=== PATIENT | female | born 2000 | race Hispanic/Latino ===

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

== ENCOUNTER 2022-07-17 12:52 | Inpatient (IN) | payer OTHER ==
[~2022-07-17] VITALS: Ht 162.6 cm; Wt 48.2 kg
[2022-07-17] MEDS ORDERED: ONDANSETRON 4MG INJ IVP ONE (13:30)
[2022-07-17] MEDS ORDERED: PANTOPRAZOLE 40 MG/VIAL IVP ONE (13:30)
[2022-07-17] MEDS ORDERED: LIDOCAINE HCL 2% VISCOUS 15 ML UDCUP PO ONE (13:30)
[2022-07-17] MEDS ORDERED: LACTATED RINGERS 1000ML 1,000 ML IV ONE ×2 (13:30→13:35)
[2022-07-17] MEDS ORDERED: PANTOPRAZOLE 40 MG/VIAL ONE (13:35)
[2022-07-17] MEDS ORDERED: ONDANSETRON 4MG INJ ONE (13:35)
[2022-07-17] MEDS ORDERED: LIDOCAINE HCL 2% VISCOUS 15 ML UDCUP ONE (13:36)
[2022-07-17] MEDS ORDERED: MAGNESIUM HYDROXIDE 30 ML/UDCUP ONE (13:36)
[2022-07-17] MEDS ORDERED: DICYCLOMINE HCL 10 MG/5 ML ML PO ONE (13:36)
[2022-07-17 13:45] LABS: BASOPHILS % (AUTO) 0.3 % (0.0-5.0); EOSINOPHILS % (AUTO) 0.1 % (0.0-8.0); HEMATOCRIT 42.5 % (36-48); LYMPHOCYTES % (AUTO) 9.9 % (21.0-51.0); MEAN CORPUSCULAR HEMOGLOBIN 31.5 pg (27.0-33.0); MEAN CORPUSCULAR HGB CONC 34.4 g/dL (32.0-36.0); MEAN CORPUSCULAR VOLUME 91.8 fL (80-100); MONOCYTES % (AUTO) 7.2 % (3.0-13.0); NEUTROPHILS % (AUTO) 82.2 % (40.0-77.0); PLATELET COUNT (AUTO) 180 K/uL (130-400); RED BLOOD CELL COUNT(AUTO) 4.63 MIL/uL (4.00-5.50); RED CELL DISTRIBUTION WIDTH 11.2 % (11.0-15.5)
[2022-07-17 13:46] LABS: APPEARANCE,URINE CLEAR (CLEAR); BILIRUBIN,URINE NEGATIVE (NEGATIVE); COLOR,URINE YELLOW (YELLOW); GLUCOSE, URINE (UA) NEGATIVE (NEGATIVE); KETONES,URINE NEGATIVE (NEGATIVE); LEUKOCYTE ESTERASE ,URINE NEGATIVE (NEGATIVE); NITRATE,URINE NEGATIVE (NEGATIVE); OCCULT BLOOD,URINE NEGATIVE (NEGATIVE); PROTEIN,URINE NEGATIVE (NEGATIVE); UROBILINOGEN,URINE 0.2 mg/dL (0.2-1.0)
[2022-07-17 13:49] LABS: HCG,QUALITATIVE URINE NEGATIVE (NEGATIVE)
[2022-07-17 13:52] LABS: CREATININE 0.5 mg/dL (0.5-1.5); POTASSIUM 3.6 mmol/L (3.5-5.1)
[2022-07-17 13:57] LABS: ALBUMIN 4.1 g/dL (3.5-5.0); TOTAL PROTEIN, SERUM 7.8 g/dL (6.0-8.3)
[2022-07-17] MEDS ORDERED: ESOM40CA PO (14:10)
[2022-07-17] MEDS ORDERED: LOPE2CAP PO (14:15)
[2022-07-17] MEDS ORDERED: ONDA4TAB10 PO (14:15)
[2022-07-17] MEDS ORDERED: MORPHINE 2 MG SYG ONE (14:52)
[2022-07-17] MEDS ORDERED: MORPHINE 4 MG SYG IVP ONE ×2 (15:00→16:00)
[2022-07-17] MEDS ORDERED: PANTOPRAZOLE 40 MG/VIAL IV ONE (16:00)
[2022-07-17] MEDS ORDERED: IOHEXOL 350 MG/ML 100ML INFUS..BTL IV ONE (16:01)
[2022-07-17] MEDS ORDERED: ZOSYN 3.375GM +NS 50ML IV SCH (17:00)
[2022-07-17] MEDS ORDERED: HYDROMORPHONE 1 MG INJ ONE (17:58)
[2022-07-17] MEDS ORDERED: HYDROMORPHONE 1 MG INJ IVP ONE (18:00)
[2022-07-17] MEDS ORDERED: MORPHINE 4 MG SYG IV PRN (19:00)
[2022-07-17] MEDS ORDERED: ACETAMINOPHEN 325 MG TAB PO PRN ×2 (19:00)
[2022-07-17] MEDS ORDERED: MORPHINE 2 MG SYG IV PRN (19:00)
[2022-07-17] MEDS ORDERED: ONDANSETRON 4MG INJ IV PRN (19:00)
[2022-07-17] MEDS: LACTATED RINGERS 1000ML 1,000 ML IV SCH (19:03)
[2022-07-17] MEDS: FAMOTIDINE 20MG VIAL IV SCH (20:27)
[2022-07-17] MEDS: METOCLOPRAMIDE 10 MG/2 ML VIAL IVP SCH (20:27)
[2022-07-18] VITALS (7 sets, daily range): BP systolic 106–140; BP diastolic 54–77
[2022-07-18 05:34] LABS: BASOPHILS % (AUTO) 0.2 % (0.0-5.0); HEMATOCRIT 36.6 % (36-48); LYMPHOCYTES % (AUTO) 11.9 % (21.0-51.0); MEAN CORPUSCULAR HEMOGLOBIN 31.8 pg (27.0-33.0); MEAN CORPUSCULAR HGB CONC 34.7 g/dL (32.0-36.0); MEAN CORPUSCULAR VOLUME 91.7 fL (80-100); MONOCYTES % (AUTO) 8.6 % (3.0-13.0); PLATELET COUNT (AUTO) 196 K/uL (130-400); RED BLOOD CELL COUNT(AUTO) 3.99 MIL/uL (4.00-5.50); RED CELL DISTRIBUTION WIDTH 11.1 % (11.0-15.5); WHITE BLOOD COUNT (AUTO) 9.3 K/uL (4.8-10.8)
[2022-07-18 05:42] LABS: INR 0.99 (0.85-1.15); PROTHROMBIN TIME 10.8 SEC (9.6-11.6)
[2022-07-18 05:43] LABS: PARTIAL THROMBOPLASTIN TIME 24.9 SEC (26.3-35.5)
[2022-07-18 05:49] LABS: CREATININE 0.5 mg/dL (0.5-1.5); MAGNESIUM 2.1 mg/dL (1.80-2.40); PHOSPHORUS 4.2 mg/dL (2.5-4.9); POTASSIUM 3.9 mmol/L (3.5-5.1)
[2022-07-18] MEDS: FAMOTIDINE 20MG VIAL IV SCH ×2 (07:46→20:39)
[2022-07-18] MEDS: METOCLOPRAMIDE 10 MG/2 ML VIAL IVP SCH ×2 (07:46→20:39)
[2022-07-18] MEDS: LACTATED RINGERS 1000ML 1,000 ML IV SCH ×2 (07:47→20:40)
[2022-07-18] MEDS ORDERED: DIATR MEGLU/DIATRIZOATE SODIUM 30 ML BOTTLE ONE (14:25)
[2022-07-19 03:12] VITALS: BP 96/46
[2022-07-19 08:00] VITALS: BP 105/63
[2022-07-19] MEDS: FAMOTIDINE 20MG VIAL IV SCH (09:16)
[2022-07-19] MEDS: METOCLOPRAMIDE 10 MG/2 ML VIAL IVP SCH (09:16)
[2022-07-19] MEDS: LACTATED RINGERS 1000ML 1,000 ML IV SCH (09:23)
[2022-07-19 12:00] VITALS: BP 108/63
== END 2022-07-19 14:30 | disposition home or self-care (01) | DRG 390 ==
LOC: EDH 12:52 → EDHIP 12:53 → 3BH 07-18 00:17
PROVIDERS: ADMIT Internal Medicine; ATTEND Internal Medicine
PROC: 0D9670Z Drainage of Stomach with Drainage Device, Via Natural or Artificial Opening (ICD-10-PCS; principal; 2022-07-17)
DX: K56.609 Unspecified intestinal obstruction, unspecified as to partial versus complete obstruction (principal); K29.70 Gastritis, unspecified, without bleeding; Z20.822 Contact with and (suspected) exposure to COVID-19
CPT/HCPCS: 36415; 74018; 74176; 74177; 80048; 80053; 81003; 81025; 83690; 83735; 84100; 85025; 85610; 85730; 87635; C9113; G0378; J1170; J2270; J2405; J2543; J2765; J3490; J7120; Q9963; Q9967

== ENCOUNTER 2023-01-25 10:55 | Inpatient (IN) | payer OTHER ==
[~2023-01-25] VITALS: Ht 162.6 cm; Wt 49.9 kg
[~2023-01-25 10:55] MED LIST: ESOM40CA PO; LOPE2CAP PO; ONDA4TAB10 PO
[2023-01-25] MEDS ORDERED: 0.9%NACL 1000ML 1,000 ML IV ONE (11:30)
[2023-01-25] MEDS ORDERED: MORPHINE 2 MG SYG IM ONE (11:30)
[2023-01-25] MEDS ORDERED: ONDANSETRON 4MG INJ IVP ONE (11:30)
[2023-01-25 11:39] LABS: BASOPHILS % (AUTO) 0.2 % (0.0-5.0); HEMATOCRIT 44.3 % (36-48); LYMPHOCYTES % (AUTO) 7.5 % (21.0-51.0); MEAN CORPUSCULAR HEMOGLOBIN 31.7 pg (27.0-33.0); MEAN CORPUSCULAR HGB CONC 34.8 g/dL (32.0-36.0); MEAN CORPUSCULAR VOLUME 91.2 fL (80-100); MONOCYTES % (AUTO) 4.5 % (3.0-13.0); NEUTROPHILS % (AUTO) 87.5 % (40.0-77.0); PLATELET COUNT (AUTO) 215 K/uL (130-400); RED BLOOD CELL COUNT(AUTO) 4.86 MIL/uL (4.00-5.50); RED CELL DISTRIBUTION WIDTH 11.1 % (11.0-15.5); WHITE BLOOD COUNT (AUTO) 9.6 K/uL (4.8-10.8)
[2023-01-25 11:47] LABS: APPEARANCE,URINE CLEAR (CLEAR); BILIRUBIN,URINE NEGATIVE (NEGATIVE); COLOR,URINE LIGHT-YELLOW (YELLOW); GLUCOSE, URINE (UA) NEGATIVE (NEGATIVE); KETONES,URINE NEGATIVE (NEGATIVE); LEUKOCYTE ESTERASE ,URINE NEGATIVE Leu/uL (NEGATIVE); NITRATE,URINE NEGATIVE (NEGATIVE); OCCULT BLOOD,URINE NEGATIVE (NEGATIVE); PROTEIN,URINE 10 mg/dL (NEGATIVE); UROBILINOGEN,URINE 0.2 mg/dL (0.2-1.0)
[2023-01-25 11:50] LABS: BACTERIA,URINE RARE /HPF (None Seen); MUCUS,URINE FEW LPF (None Seen); OTHER CASTS, URINE 1 /LPF (None Seen); RBC,URINE 0-1 /HPF (0-1); SQUAMOUS EPITHELIAL CELL,UR RARE /HPF (0-2)
[2023-01-25 11:58] LABS: ALBUMIN 4.5 g/dL (3.5-5.0); CREATININE 0.7 mg/dL (0.5-1.5); POTASSIUM 4.1 mmol/L (3.5-5.1); TOTAL PROTEIN, SERUM 8.3 g/dL (6.0-8.3)
[2023-01-25] MEDS ORDERED: IOHEXOL-350 75 ML VIAL IV ONE (12:04)
[2023-01-25] MEDS ORDERED: OXYMETAZOLINE HCL SPRAY 15 ML BOTTLE ONE (13:14)
[2023-01-25] MEDS ORDERED: LIDOCAINE HCL 2% VISCOUS 15 ML UDCUP ONE (13:15)
[2023-01-25] MEDS ORDERED: KETOROLAC 15MG/ML VIAL (15MG/ML) IV PRN (14:00)
[2023-01-25] MEDS ORDERED: MAGNESIUM 2GM PREMIX 50ML 50 ML IV PRN (14:00)
[2023-01-25] MEDS ORDERED: 0.9%NACL 50ML IV SCH (14:00)
[2023-01-25] MEDS ORDERED: LIDOCAINE HCL 2% VISCOUS 15 ML UDCUP PO ONE (14:00)
[2023-01-25] MEDS: ZOSYN 3.375GM +NS 50ML IVPB SCH ×2 (14:12→22:17)
[2023-01-25] MEDS: OXYMETAZOLINE HCL SPRAY 15 ML BOTTLE EN SCH (14:13)
[2023-01-25] MEDS ORDERED: PANTOPRAZOLE 40 MG/VIAL IVP ONE (14:30)
[2023-01-25] MEDS: LACTATED RINGERS 1000ML 1,000 ML IV SCH (16:02)
[2023-01-25 17:15] VITALS: BP 124/76
[2023-01-25 19:57] VITALS: BP 114/78
[2023-01-25] MEDS ORDERED: PHENOL 177 ML BOTTLE PO PRN (20:00)
[2023-01-25] MEDS: LEVOFLOXACIN 500 MG/D5W 100 ML 100 ML IV SCH (20:02)
[2023-01-25] MEDS: FAMOTIDINE 20MG VIAL IV SCH (20:03)
[2023-01-25] MEDS ORDERED: ZOSYN 3.375GM+NS 50ML 50 ML IV SCH (21:00)
[2023-01-25] MEDS: ONDANSETRON 4MG INJ IVP PRN (22:18)
[2023-01-25] MEDS ORDERED: KETOROLAC 15MG/ML VIAL (15MG/ML) IV STA (22:20)
[2023-01-25 23:40] VITALS: BP 124/79
[2023-01-25] MEDS: IPRATROPIUM 0.5 MG/2.5 ML INH IH SCH (23:41)
[2023-01-26] MEDS: LACTATED RINGERS 1000ML 1,000 ML IV SCH ×2 (03:20→19:55)
[2023-01-26 04:47] LABS: BASOPHILS % (AUTO) 0.3 % (0.0-5.0); HEMATOCRIT 38.2 % (36-48); LYMPHOCYTES % (AUTO) 15.4 % (21.0-51.0); MEAN CORPUSCULAR HEMOGLOBIN 31.4 pg (27.0-33.0); MEAN CORPUSCULAR HGB CONC 34.3 g/dL (32.0-36.0); MEAN CORPUSCULAR VOLUME 91.6 fL (80-100); MONOCYTES % (AUTO) 12.2 % (3.0-13.0); NEUTROPHILS % (AUTO) 71.5 % (40.0-77.0); PLATELET COUNT (AUTO) 202 K/uL (130-400); RED BLOOD CELL COUNT(AUTO) 4.17 MIL/uL (4.00-5.50); RED CELL DISTRIBUTION WIDTH 11.2 % (11.0-15.5); WHITE BLOOD COUNT (AUTO) 6.9 K/uL (4.8-10.8)
[2023-01-26 05:07] LABS: ALBUMIN 3.5 g/dL (3.5-5.0); CREATININE 0.5 mg/dL (0.5-1.5); POTASSIUM 3.6 mmol/L (3.5-5.1); TOTAL PROTEIN, SERUM 6.9 g/dL (6.0-8.3)
[2023-01-26] MEDS: ZOSYN 3.375GM +NS 50ML IVPB SCH ×3 (05:22→21:08)
[2023-01-26] MEDS: IPRATROPIUM 0.5 MG/2.5 ML INH IH SCH ×5 (06:59→23:35)
[2023-01-26] MEDS: FAMOTIDINE 20MG VIAL IV SCH ×2 (09:25→19:55)
[2023-01-26] MEDS: OXYMETAZOLINE HCL SPRAY 15 ML BOTTLE EN SCH (14:00)
[2023-01-26 16:00] VITALS: BP 118/76
[2023-01-26] MEDS: LEVOFLOXACIN 500 MG/D5W 100 ML 100 ML IV SCH (19:55)
[2023-01-26 20:22] VITALS: BP 112/75
[2023-01-26] MEDS: ONDANSETRON 4MG INJ IVP PRN (23:06)
[2023-01-26 23:49] VITALS: BP 114/76
[2023-01-27 04:49] VITALS: BP 104/66
[2023-01-27] MEDS: ZOSYN 3.375GM +NS 50ML IVPB SCH ×3 (05:38→21:24)
[2023-01-27] MEDS: LACTATED RINGERS 1000ML 1,000 ML IV SCH ×2 (06:00→19:20)
[2023-01-27] MEDS: IPRATROPIUM 0.5 MG/2.5 ML INH IH SCH ×4 (06:16→23:30)
[2023-01-27 08:00] VITALS: BP 117/69
[2023-01-27] MEDS: FAMOTIDINE 20MG VIAL IV SCH ×2 (09:38→21:24)
[2023-01-27 12:00] VITALS: BP 110/62
[2023-01-27] MEDS: OXYMETAZOLINE HCL SPRAY 15 ML BOTTLE EN SCH (14:00)
[2023-01-27 16:00] VITALS: BP 125/78
[2023-01-27] MEDS: LEVOFLOXACIN 500 MG/D5W 100 ML 100 ML IV SCH (19:18)
[2023-01-27 19:53] VITALS: BP 113/63
[2023-01-27 23:36] VITALS: BP 109/58
[2023-01-28 04:41] VITALS: BP 113/57
[2023-01-28 04:48] LABS: BASOPHILS % (AUTO) 0.5 % (0.0-5.0); EOSINOPHILS % (AUTO) 0.7 % (0.0-8.0); HEMATOCRIT 37.6 % (36-48); LYMPHOCYTES % (AUTO) 35.4 % (21.0-51.0); MEAN CORPUSCULAR HEMOGLOBIN 31.4 pg (27.0-33.0); MEAN CORPUSCULAR HGB CONC 33.8 g/dL (32.0-36.0); MEAN CORPUSCULAR VOLUME 93.1 fL (80-100); MONOCYTES % (AUTO) 13.3 % (3.0-13.0); NEUTROPHILS % (AUTO) 49.6 % (40.0-77.0); PLATELET COUNT (AUTO) 186 K/uL (130-400); RED BLOOD CELL COUNT(AUTO) 4.04 MIL/uL (4.00-5.50); RED CELL DISTRIBUTION WIDTH 10.9 % (11.0-15.5); WHITE BLOOD COUNT (AUTO) 4.2 K/uL (4.8-10.8)
[2023-01-28 05:09] LABS: ALBUMIN 3.5 g/dL (3.5-5.0); CREATININE 0.6 mg/dL (0.5-1.5); POTASSIUM 3.2 mmol/L (3.5-5.1); TOTAL PROTEIN, SERUM 6.8 g/dL (6.0-8.3)
[2023-01-28] MEDS: ZOSYN 3.375GM +NS 50ML IVPB SCH ×3 (05:36→21:05)
[2023-01-28] MEDS: POTASSIUM CHLORIDE 20MEQ/100ML 100 ML IV PRN (05:37)
[2023-01-28] MEDS: LIDOCAINE HCL-MPF 1% 2ML VIAL IV PRN (05:37)
[2023-01-28] MEDS: IPRATROPIUM 0.5 MG/2.5 ML INH IH SCH ×4 (06:22→23:26)
[2023-01-28 08:00] VITALS: BP 113/68
[2023-01-28] MEDS: LACTATED RINGERS 1000ML 1,000 ML IV SCH ×2 (08:40→21:12)
[2023-01-28] MEDS: FAMOTIDINE 20MG VIAL IV SCH ×2 (09:40→21:05)
[2023-01-28] MEDS: ENOXAPARIN SODIUM 30 MG/0.3 ML SQ SCH (09:41)
[2023-01-28 12:00] VITALS: BP 125/88
[2023-01-28] MEDS ORDERED: POLYETHYLENE GLYCOL 3350 17 GM POWD.PACK PO SCH (12:21)
[2023-01-28] MEDS ORDERED: LACTOBACILLUS RHAMNOSUS GG 1 EACH CAP.SPRINK PO SCH (12:21)
[2023-01-28] MEDS: OXYMETAZOLINE HCL SPRAY 15 ML BOTTLE EN SCH (13:48)
[2023-01-28 20:32] VITALS: BP 97/54
[2023-01-28 23:32] VITALS: BP 105/59
[2023-01-29 04:02] VITALS: BP 109/56
[2023-01-29 04:39] LABS: BASOPHILS % (AUTO) 0.9 % (0.0-5.0); EOSINOPHILS % (AUTO) 0.6 % (0.0-8.0); HEMATOCRIT 34.6 % (36-48); LYMPHOCYTES % (AUTO) 36.8 % (21.0-51.0); MEAN CORPUSCULAR HEMOGLOBIN 31.3 pg (27.0-33.0); MEAN CORPUSCULAR HGB CONC 34.7 g/dL (32.0-36.0); MEAN CORPUSCULAR VOLUME 90.3 fL (80-100); MONOCYTES % (AUTO) 13.1 % (3.0-13.0); NEUTROPHILS % (AUTO) 48.2 % (40.0-77.0); PLATELET COUNT (AUTO) 184 K/uL (130-400); RED BLOOD CELL COUNT(AUTO) 3.83 MIL/uL (4.00-5.50); WHITE BLOOD COUNT (AUTO) 4.7 K/uL (4.8-10.8)
[2023-01-29] MEDS: ZOSYN 3.375GM +NS 50ML IVPB SCH ×3 (05:02→21:39)
[2023-01-29 05:03] LABS: ALBUMIN 3.3 g/dL (3.5-5.0); CREATININE 0.6 mg/dL (0.5-1.5); POTASSIUM 3.5 mmol/L (3.5-5.1); TOTAL PROTEIN, SERUM 6.6 g/dL (6.0-8.3)
[2023-01-29] MEDS: IPRATROPIUM 0.5 MG/2.5 ML INH IH SCH ×4 (06:18→23:19)
[2023-01-29 08:00] VITALS: BP 95/47
[2023-01-29] MEDS: FAMOTIDINE 20MG VIAL IV SCH ×2 (08:06→21:39)
[2023-01-29] MEDS: POLYETHYLENE GLYCOL 3350 17 GM POWD.PACK PO SCH (08:06)
[2023-01-29] MEDS: LACTOBACILLUS RHAMNOSUS GG 1 EACH CAP.SPRINK PO SCH (08:06)
[2023-01-29] MEDS: ENOXAPARIN SODIUM 30 MG/0.3 ML SQ SCH (08:06)
[2023-01-29] MEDS: LACTATED RINGERS 1000ML 1,000 ML IV SCH (11:20)
[2023-01-29 11:59] VITALS: BP 95/53
[2023-01-29] MEDS: OXYMETAZOLINE HCL SPRAY 15 ML BOTTLE EN SCH (13:56)
[2023-01-29 16:00] VITALS: BP 102/63
[2023-01-29] MEDS ORDERED: OXYMETAZOLINE HCL SPRAY 15 ML BOTTLE EN SCH (18:00)
[2023-01-30] VITALS (23 sets, daily range): BP systolic 98–134; BP diastolic 56–93
[2023-01-30] MEDS: LACTATED RINGERS 1000ML 1,000 ML IV SCH ×2 (05:47→14:00)
[2023-01-30] MEDS: ZOSYN 3.375GM +NS 50ML IVPB SCH ×3 (05:47→20:54)
[2023-01-30 05:49] LABS: BASOPHILS % (AUTO) 0.5 % (0.0-5.0); EOSINOPHILS % (AUTO) 1.2 % (0.0-8.0); HEMATOCRIT 35.3 % (36-48); LYMPHOCYTES % (AUTO) 39.4 % (21.0-51.0); MEAN CORPUSCULAR HEMOGLOBIN 31.6 pg (27.0-33.0); MEAN CORPUSCULAR HGB CONC 34.6 g/dL (32.0-36.0); MEAN CORPUSCULAR VOLUME 91.5 fL (80-100); MONOCYTES % (AUTO) 15.9 % (3.0-13.0); NEUTROPHILS % (AUTO) 42.5 % (40.0-77.0); PLATELET COUNT (AUTO) 196 K/uL (130-400); RED BLOOD CELL COUNT(AUTO) 3.86 MIL/uL (4.00-5.50); RED CELL DISTRIBUTION WIDTH 11.1 % (11.0-15.5); WHITE BLOOD COUNT (AUTO) 4.1 K/uL (4.8-10.8)
[2023-01-30 06:00] LABS: PROTHROMBIN TIME 10.9 SEC (9.6-11.6)
[2023-01-30 06:02] LABS: PARTIAL THROMBOPLASTIN TIME 28.2 SEC (26.3-35.5)
[2023-01-30 06:07] LABS: ALBUMIN 3.3 g/dL (3.5-5.0); CREATININE 0.6 mg/dL (0.5-1.5); POTASSIUM 3.3 mmol/L (3.5-5.1); TOTAL PROTEIN, SERUM 6.4 g/dL (6.0-8.3)
[2023-01-30] MEDS: IPRATROPIUM 0.5 MG/2.5 ML INH IH SCH ×4 (06:40→23:42)
[2023-01-30] MEDS: LACTOBACILLUS RHAMNOSUS GG 1 EACH CAP.SPRINK PO SCH (09:00)
[2023-01-30] MEDS: ENOXAPARIN SODIUM 30 MG/0.3 ML SQ SCH (09:00)
[2023-01-30] MEDS: POLYETHYLENE GLYCOL 3350 17 GM POWD.PACK PO SCH (09:00)
[2023-01-30] MEDS: FAMOTIDINE 20MG VIAL IV SCH ×2 (10:01→20:54)
[2023-01-30] MEDS: POTASSIUM CHLORIDE 20MEQ/100ML 100 ML IV PRN (10:01)
[2023-01-30] MEDS: LIDOCAINE HCL-MPF 1% 2ML VIAL IV PRN (10:02)
[2023-01-30] MEDS ORDERED: PROPOFOL 10 MG/ML 20ML VIAL IV ONE (14:04)
[2023-01-30] MEDS ORDERED: GLYCOPYRROLATE 1 MG/5 ML SYRINGE ONE (14:05)
[2023-01-30] MEDS ORDERED: NEOSTIGMINE 5MG/5ML SYR IV ONE (14:05)
[2023-01-30] MEDS ORDERED: ROCURONIUM 10MG/1ML SYR 10 MG/ML ML ONE (14:06)
[2023-01-30] MEDS ORDERED: SUCCINYLCHOLINE 200MG/10ML SYR ONE (14:30)
[2023-01-30] MEDS ORDERED: ONDANSETRON 4MG INJ ONE (14:58)
[2023-01-30] MEDS ORDERED: MEPERIDINE-PF 25 MG/ML SYG ONE (15:07)
[2023-01-31] MEDS: ONDANSETRON 4MG INJ IVP PRN (00:30)
[2023-01-31 04:29] VITALS: BP 101/53
[2023-01-31 04:49] LABS: EOSINOPHILS % (AUTO) 0.8 % (0.0-8.0); HEMATOCRIT 36.7 % (36-48); LYMPHOCYTES % (AUTO) 39.4 % (21.0-51.0); MEAN CORPUSCULAR HGB CONC 34.9 g/dL (32.0-36.0); MEAN CORPUSCULAR VOLUME 91.8 fL (80-100); MONOCYTES % (AUTO) 12.2 % (3.0-13.0); NEUTROPHILS % (AUTO) 46.2 % (40.0-77.0); PLATELET COUNT (AUTO) 193 K/uL (130-400); RED CELL DISTRIBUTION WIDTH 11.2 % (11.0-15.5); WHITE BLOOD COUNT (AUTO) 4.8 K/uL (4.8-10.8)
[2023-01-31 05:08] LABS: ALBUMIN 3.6 g/dL (3.5-5.0); CREATININE 0.6 mg/dL (0.5-1.5); POTASSIUM 3.5 mmol/L (3.5-5.1); TOTAL PROTEIN, SERUM 6.9 g/dL (6.0-8.3)
[2023-01-31] MEDS: ZOSYN 3.375GM +NS 50ML IVPB SCH (05:21)
[2023-01-31] MEDS: IPRATROPIUM 0.5 MG/2.5 ML INH IH SCH ×2 (06:00→11:07)
[2023-01-31 08:00] VITALS: BP 103/59
[2023-01-31] MEDS: LACTOBACILLUS RHAMNOSUS GG 1 EACH CAP.SPRINK PO SCH (09:42)
[2023-01-31] MEDS: ENOXAPARIN SODIUM 30 MG/0.3 ML SQ SCH (09:42)
[2023-01-31] MEDS: POLYETHYLENE GLYCOL 3350 17 GM POWD.PACK PO SCH (09:42)
[2023-01-31] MEDS: POTASSIUM CHLORIDE 20MEQ/100ML 100 ML IV PRN (09:43)
[2023-01-31] MEDS: LIDOCAINE HCL-MPF 1% 2ML VIAL IV PRN (09:44)
[2023-01-31 12:00] VITALS: BP 125/77
[2023-01-31 12:23] LABS: BODY FLUID RBC 0 /cu. mm.; BODY FLUID WBC 814 /cu. mm.
[2023-01-31 14:41] LABS: APPEARANCE BODY FLUID CLEAR (CLEAR); BF LYMPHOCYTE 16 %; BF MESOTHELIAL 49 %; COLOR,BODY FLUID COLORLESS (LT YELLOW); SPECIMENTYPE,BODY FLUID LAVAGE; TOTAL VOLUME,BODY FLUID 24 mL
== END 2023-01-31 13:00 | disposition home or self-care (01) | DRG 167 ==
LOC: EDH 10:55 → EDHIP 10:56 → 4AH 16:40
PROVIDERS: ADMIT Internal Medicine; ATTEND Internal Medicine
PROC: 0BBC8ZX Excision of Right Upper Lung Lobe, Via Natural or Artificial Opening Endoscopic, Diagnostic (ICD-10-PCS; principal; 2023-01-30)
PROC: 0B9C8ZX Drainage of Right Upper Lung Lobe, Via Natural or Artificial Opening Endoscopic, Diagnostic (ICD-10-PCS; 2023-01-30)
PROC: 0D9770Z Drainage of Stomach, Pylorus with Drainage Device, Via Natural or Artificial Opening (ICD-10-PCS; 2023-01-30)
DX: J18.9 Pneumonia, unspecified organism (principal); J47.0 Bronchiectasis with acute lower respiratory infection; K56.699 Other intestinal obstruction unspecified as to partial versus complete obstruction; Z20.822 Contact with and (suspected) exposure to COVID-19; L80 Vitiligo
CPT/HCPCS: 31624; 31625; 36415; 71045; 71250; 74018; 74177; 80053; 81001; 83690; 83735; 84703; 85025; 85610; 85730; 86480; 86701; 87071; 87101; 87116; 87205; 87206; 87390; 87536; 87635; 89051; 94640; 94664; A4606; C9113; C9803; G0378; J0330; J1650; J1885; J1956; J2175; J2405; J2543; J2704; J2710; J3480; J3490; J7030; Q9967

== ENCOUNTER 2023-03-25 20:11 | Emergency (ER) | payer OTHER ==
[~2023-03-25] VITALS: Ht 162.6 cm; Wt 45.4 kg
[2023-03-25] MEDS ORDERED: 0.9%NACL 1000ML 2,000 ML IV ONE (22:30)
[2023-03-25] MEDS ORDERED: ONDANSETRON 4MG INJ IVP ONE (22:30)
[2023-03-25 22:57] LABS: BASOPHILS % (AUTO) 0.1 % (0.0-5.0); EOSINOPHILS % (AUTO) 0.1 % (0.0-8.0); LYMPHOCYTES % (AUTO) 2.5 % (21.0-51.0); MEAN CORPUSCULAR HGB CONC 34.4 g/dL (32.0-36.0); MONOCYTES % (AUTO) 5.3 % (3.0-13.0); NEUTROPHILS % (AUTO) 91.5 % (40.0-77.0); PLATELET COUNT (AUTO) 219 K/uL (130-400); RED CELL DISTRIBUTION WIDTH 11.1 % (11.0-15.5); WHITE BLOOD COUNT (AUTO) 15.4 K/uL (4.8-10.8)
[2023-03-25 23:07] LABS: CREATININE 0.6 mg/dL (0.5-1.5); POTASSIUM 4.3 mmol/L (3.5-5.1)
[2023-03-25 23:10] LABS: ALBUMIN 4.4 g/dL (3.5-5.0); TOTAL PROTEIN, SERUM 8.6 g/dL (6.0-8.3)
[2023-03-26] MEDS ORDERED: ONDANSETRON 4MG INJ IVP ONE (01:00)
[2023-03-26] MEDS ORDERED: FAMOTIDINE 20MG VIAL IV ONE (01:00)
[2023-03-26] MEDS ORDERED: FAMO-136 PO (01:10)
[2023-03-26] MEDS ORDERED: ONDA-104 PO (01:10)
[2023-03-26 01:41] VITALS: BP 108/74
== END 2023-03-26 02:09 | disposition home or self-care (01) ==
LOC: EDH 20:11
DX: R11.2 Nausea with vomiting, unspecified (principal); E86.0 Dehydration; R53.83 Other fatigue; R10.9 Unspecified abdominal pain; Z79.899 Other long term (current) drug therapy
CPT/HCPCS: 99284; 96361; 82150; 82550; 80053; 83690; 85025; 36415; 96374; 96375; 96376; J7030; J2405 ×2; J3490

== ENCOUNTER 2024-04-10 10:33 | Emergency (ER) | payer BC, OTHER ==
[~2024-04-10] VITALS: Ht 160 cm; Wt 48.1 kg
[~2024-04-10 10:33] MED LIST changes: +FAMO-136 PO; +ONDA-104 PO; +ONDA-243 PO; -ONDA4TAB10 PO
[2024-04-10 11:43] LABS: BASOPHILS # (AUTO) 0.04 K/uL (0.00-0.20); BASOPHILS % (AUTO) 0.6 % (0.0-5.0); EOSINOPHILS # (AUTO) 0.04 K/uL (0.00-0.70); EOSINOPHILS % (AUTO) 0.6 % (0.0-8.0); HEMATOCRIT 43.5 % (36-48); IMMATURE GRANULOCYTE ABSOLUTE 0.02 K/uL (0-1); LYMPHOCYTES # (AUTO) 1.7 K/uL (1.0-4.8); LYMPHOCYTES % (AUTO) 27.2 % (21.0-51.0); MEAN CORPUSCULAR HEMOGLOBIN 32.5 pg (27.0-33.0); MEAN CORPUSCULAR HGB CONC 35.4 g/dL (32.0-36.0); MEAN CORPUSCULAR VOLUME 91.8 fL (80-100); MONOCYTES # (AUTO) 0.6 K/uL (0.1-1.0); MONOCYTES % (AUTO) 8.6 % (3.0-13.0); NEUTROPHILS % (AUTO) 62.7 % (40.0-77.0); PLATELET COUNT (AUTO) 196 K/uL (130-400); RED BLOOD CELL COUNT(AUTO) 4.74 MIL/uL (4.00-5.50); WHITE BLOOD COUNT (AUTO) 6.4 K/uL (4.8-10.8)
[2024-04-10] MEDS: ONDANSETRON ODT 4MG TAB SL ONE (11:43)
[2024-04-10] MEDS: 0.9%NACL 1000ML 1,000 ML IV ONE (11:43)
[2024-04-10] MEDS: ONDANSETRON 4MG INJ IVP ONE (11:43)
[2024-04-10] MEDS: MORPHINE 2 MG SYG IVP ONE (11:45)
[2024-04-10 11:48] LABS: APPEARANCE,URINE CLEAR (CLEAR); BILIRUBIN,URINE NEGATIVE (NEGATIVE); COLOR,URINE LIGHT-YELLOW (YELLOW); GLUCOSE, URINE (UA) NEGATIVE (NEGATIVE); KETONES,URINE NEGATIVE (NEGATIVE); LEUKOCYTE ESTERASE ,URINE NEGATIVE Leu/uL (NEGATIVE); NITRATE,URINE NEGATIVE (NEGATIVE); OCCULT BLOOD,URINE NEGATIVE (NEGATIVE); PROTEIN,URINE NEGATIVE (NEGATIVE); UROBILINOGEN,URINE 0.2 mg/dL (0.2-1.0)
[2024-04-10 11:50] LABS: CREATININE 0.5 mg/dL (0.5-1.0); HCG,QUALITATIVE URINE NEGATIVE (NEGATIVE); POTASSIUM 4.2 mmol/L (3.5-5.1)
[2024-04-10 11:51] LABS: ADD UA MICROSCOPIC NO
[2024-04-10] MEDS: MORPHINE 2 MG SYG IVP STA (14:20)
[2024-04-10 14:50] LABS: ALANINE AMINOTRANSFERASE 16 U/L (12-78); ASPARTATE AMINOTRANSFERASE 25 U/L (10-37); BILIRUBIN,DIRECT < 0.1 mg/dL (0.0-0.3); BILIRUBIN,TOTAL 0.3 mg/dL (0.2-1.0); TOTAL PROTEIN, SERUM 7.7 g/dL (6.0-8.3)
[2024-04-10 15:22] LABS: AMPHET/METH SCREEN,URINE NEGATIVE (NEGATIVE); BARBITURATE SCREEN, URINE NEGATIVE (NEGATIVE); BENZODIAZEPINES SCREEN,URINE NEGATIVE (NEGATIVE); CANNABINOID SCREEN,URINE NEGATIVE (NEGATIVE); COCAINE SCREEN,URINE NEGATIVE (NEGATIVE); OPIATE SCREEN,URINE NEGATIVE (NEGATIVE); PHENCYCLIDINE SCREEN,URINE NEGATIVE (NEGATIVE)
[2024-04-10] MEDS ORDERED: DOCU-116 PO (16:24)
[2024-04-10] MEDS ORDERED: ONDA-243 PO (16:24)
[2024-04-10] MEDS ORDERED: POLY17PO4 PO (16:24)
[2024-04-10 17:00] VITALS: BP 107/77; PULSE 82; RESP 16; O2SAT 98
[2024-04-10] MEDS: METOCLOPRAMIDE 10 MG/2 ML VIAL IVP STA (17:09)
[2024-04-10] MEDS: HYDROMORPHONE 0.5 MG SYG (0.5MG/0.5ML) IVP ONE (17:13)
== END 2024-04-10 18:10 | disposition home or self-care (01) ==
LOC: EDH 10:33
DX: K59.00 Constipation, unspecified (principal); R10.9 Unspecified abdominal pain; R11.0 Nausea
CPT/HCPCS: 99285; 74176; 96374; 96375; 76857; 96361; 80076; 83735; 80048; 80305; 83690; 85025; 83605; 81025; 36415; 96376; 81003; J2270 ×2; J7030; J2405; J2765; J1170

== ENCOUNTER 2025-03-13 00:14 | Emergency (ER) | payer BC ==
[~2025-03-13] VITALS: Ht 160 cm; Wt 52.2 kg
[~2025-03-13 00:14] MED LIST changes: +DOCU-116 PO; +POLY17PO4 PO
--- NOTE | 2025-03-13 00:17 | NUR ---
UA CUP PROVIDED
--- NOTE | 2025-03-13 00:19 | NUR ---
PT CARE ASSUMED AT THIS TIME
[2025-03-13 00:45] LABS: BASOPHILS # (AUTO) 0.04 K/uL (0.00-0.20); BASOPHILS % (AUTO) 0.5 % (0.0-5.0); EOSINOPHILS # (AUTO) 0.05 K/uL (0.00-0.70); EOSINOPHILS % (AUTO) 0.6 % (0.0-8.0); HEMATOCRIT 40.2 % (36-48); IMMATURE GRANULOCYTE ABSOLUTE 0.02 K/uL (0-1); LYMPHOCYTES # (AUTO) 3.3 K/uL (1.0-4.8); LYMPHOCYTES % (AUTO) 41.4 % (21.0-51.0); MEAN CORPUSCULAR HEMOGLOBIN 31.8 pg (27.0-33.0); MEAN CORPUSCULAR HGB CONC 35.3 g/dL (32.0-36.0); MEAN CORPUSCULAR VOLUME 89.9 fL (79-99); MONOCYTES # (AUTO) 0.7 K/uL (0.1-1.0); MONOCYTES % (AUTO) 8.9 % (3.0-13.0); NEUTROPHILS # (AUTO) 3.9 K/uL (1.8-7.7); NEUTROPHILS % (AUTO) 48.4 % (40.0-77.0); PLATELET COUNT (AUTO) 188 K/uL (130-400); RED BLOOD CELL COUNT(AUTO) 4.47 MIL/uL (4.00-5.50); RED CELL DISTRIBUTION WIDTH 11.3 % (11.0-15.5)
[2025-03-13 00:53] LABS: APPEARANCE,URINE CLEAR (CLEAR); BILIRUBIN,URINE NEGATIVE (NEGATIVE); COLOR,URINE COLORLESS (YELLOW); GLUCOSE, URINE (UA) NEGATIVE (NEGATIVE); KETONES,URINE NEGATIVE (NEGATIVE); LEUKOCYTE ESTERASE ,URINE NEGATIVE Leu/uL (NEGATIVE); NITRATE,URINE NEGATIVE (NEGATIVE); OCCULT BLOOD,URINE NEGATIVE (NEGATIVE); PROTEIN,URINE NEGATIVE (NEGATIVE); UROBILINOGEN,URINE 0.2 mg/dL (0.2-1.0)
[2025-03-13 00:54] LABS: ADD UA MICROSCOPIC NO
--- NOTE | 2025-03-13 00:54 | ERN ---
General Chief Complaint: Abdominal Pain Stated Complaint: ABD PAIN, RADIATING TO BACK Time Seen by MD: 00:17 Time Seen by Midlevel: 00:17 Source: patient History of Present Illness Initial Comments The patient is a 24-year-old female with no significant past medical history presenting to the emergency department with right lower quadrant abdominal pain that radiates to her back. She states she has been having intermittent episodes of abdominal pain however over the last 2 hours she had right lower quadrant abdominal pain that worsened. She reports associated nausea. Denies fever, dysuria, hematuria, or any other symptoms at this time. Allergies: Coded Allergies: No Known Drug Allergies (Unverified Allergy, Unknown, 12/06/19) Home Meds Active Scripts Docusate Sodium (Colace) 100 Mg Capsule, 100 MG PO BID for 14 Days, #28 CAP 0 Refills Prov:TRAVON BOYLE NP 04/10/24 Polyethylene Glycol 3350 (Miralax) 17 Gram Powd.pack, 17 GM PO DAILY, #30 30 0 Refills Prov:TRAVON BOYLE NP 04/10/24 Ondansetron (Ondansetron Odt) 4 Mg Tab.rapdis, 4 MG PO Q6HPRN PRN for nausea, #15 TAB 0 Refills Prov:TRAVON BOYLE NP 04/10/24 Famotidine (Pepcid) 20 Mg Tablet, 20 MG PO BID, #60 TAB Prov:OSMIN HICKMAN MD 03/26/23 Ondansetron HCl (Ondansetron HCl) 4 Mg Tablet, 4 MG PO TIDP PRN for VOMITING, #30 TAB Prov:OSMIN HICKMAN MD 03/26/23 Ondansetron (Ondansetron Odt) 4 Mg Tab.rapdis, 4 MG PO Q6HPRN PRN for nausea, #16 TAB 0 Refills Prov:TIARRA PRIETO MD 07/17/22 Loperamide HCl (Loperamide) 2 Mg Capsule, 2 MG PO 5XDAY for diarrhea, #10 CAP 0 Refills Take 2 tablets initially and then 1 tablet with every loose bowel movement. Prov:TIARRA PRIETO MD 07/17/22 Esomeprazole Magnesium (Nexium) 40 Mg Capsule.dr, 40 MG PO DAILY for 15 Days, #15 CAP 0 Refills Prov:TIARRA PRIETO MD 07/17/22 Past Medical History Past Medical History: TB, Other Medical History Other: VITILIGO; GASTRITIS Past Surgical History: None Family History Family History: Negative Social History Social History: Negative, Lives with family Female( History) LMP: Feb 28, 2025 ROS Dictation CONSTITUTIONAL: Negative except for HPI HEAD/FACE: Negative except for HPI EENT: Negative except for HPI RESPIRATORY: Negative except for HPI GASTROINTESTINAL/ABDOMINAL: Negative except for HPI GENITOURINARY: Negative except for HPI MUSCULOSKELETAL: Negative except for HPI INTEGUMENTARY: Negative except for HPI NEUROLOGICAL/PSYCH: Negative except for HPI HEMATOLOGIC/LYMPHATIC: Negative except for HPI All Systems Negative, Except as noted above. 13 point review of systems assessed and all negative except for above. Physical Exam Physical Exam Dictation Vital Signs reviewed General Appearance: Alert, oriented x 3, no acute distress, well developed, nourished. Head and Face: non-traumatic. Eyes: PERRL, pink conjunctivas, eyelid no trauma, anterior chamber with arcus se nilis. Ears: Pinnas intact and no signs of trauma or erythema ear canals clear and no discharge TM no erythema Nose: No discharge, no bleeding. Oropharynx: Mouth normal, tongue pink, pharynx clear,no erythema, tonsils no exudates, no abscesses noted, mucous membrane moist Neck: Supple, non-tender, no thyromegaly, no masses, no JVD, no bruits Breast:Deferred Chest:No tenderness, no crepitus, no paradoxical movement, no retractions Lungs:Clear, well-ventilated, symmetric, no rales, no wheezing, no rhonchi, no stridor, good breath sounds bilaterally Heart: Regular rate, regular rhythm, no murmur, no gallops Vascular: no peripheral edema, Abdomen: Soft, positive bowel sounds, nondistended, no guarding, Right lower quadrant abdominal pain, no rebound, no masses no hepatomegaly, no splenomegaly, no Lombardi's sign, no hernias. Rectal: Deferred Genital: Deferred Neurological: Normal speech, motor function intact, sensory function intact Musculoskeletal: Neck nontender, full range of motion, back nontender, full range of motion, Extremities: nontender, full range of motion Skin: Color pink, dry, no turgor, no rash, no lacerations, no abrasions, no contusions. Lymphatic: Deferred Results Laboratory and Microbiology Lab and Micro Result Laboratory Tests Test 03/13/25 00:21 03/13/25 00:38 Urine Color COLORLESS (YELLOW) Urine Appearance CLEAR (CLEAR) Urine pH 7.0 (5.0-8.0) Urine Specific [place] 1.018 (1.001-1.031) Urine Protein NEGATIVE mg/dL (NEGATIVE) Urine Glucose (UA) NEGATIVE mg/dL (NEGATIVE) Urine Ketones NEGATIVE mg/dL (NEGATIVE) Urine Occult Blood NEGATIVE (NEGATIVE) Urine Nitrate NEGATIVE (NEGATIVE) Urine Bilirubin NEGATIVE mg/dL (NEGATIVE) Urine Urobilinogen 0.2 mg/dL (0.2-1.0) Urine Leukocyte Esterase NEGATIVE Carol/uL Urine HCG, Qualitative NEGATIVE (NEGATIVE) White Blood Count 8.0 K/uL (4.8-10.8) Red Blood Count 4.47 MIL/uL (4.00-5.50) Hemoglobin 14.2 g/dL (12.0-16.0) Hematocrit 40.2 % (36-48) Mean Corpuscular Volume 89.9 fL (79-99) Mean Corpuscular Hemoglobin 31.8 pg (27.0-33.0) Mean Corpuscular Hemoglobin Concent 35.3 g/dL (32.0-36.0) Red Cell Distribution Width 11.3 % (11.0-15.5) Platelet Count 188 K/uL (130-400) Mean Platelet Volume 10.9 fL (7.5-10.5) H Immature Granulocyte % (Auto) 0.2 % (0-1) Neutrophils (%) (Auto) 48.4 % (40.0-77.0) Lymphocytes (%) (Auto) 41.4 % (21.0-51.0) Monocytes (%) (Auto) 8.9 % (3.0-13.0) Eosinophils (%) (Auto) 0.6 % (0.0-8.0) Basophils (%) (Auto) 0.5 % (0.0-5.0) Neutrophils # (Auto) 3.9 K/uL (1.8-7.7) Lymphocytes # (Auto) 3.3 K/uL (1.0-4.8) Monocytes # (Auto) 0.7 K/uL (0.1-1.0) Eosinophils # (Auto) 0.05 K/uL (0.00-0.70) Basophils # (Auto) 0.04 K/uL (0.00-0.20) Absolute Immature Granulocyte (auto 0.02 K/uL (0-1) Nucleated Red Blood Cells 0.0 % (0.0-0.19) Sodium Level 138 mmol/L (136-145) Potassium Level 3.6 mmol/L (3.5-5.1) Chloride Level 103 mmol/L (101-111) Carbon Dioxide Level 28 mmol/L (21-32) Blood Urea Nitrogen 12 mg/dL (7-18) Creatinine 0.6 mg/dL (0.5-1.0) Glomerular Filtration Rate Calc 130 mL/min (>90) Random Glucose 90 mg/dL (70-105) Total Calcium 8.5 mg/dL (8.5-10.1) MDM MDM: The patient is a 24-year-old female with no significant past medical history presenting to the emergency department with right lower quadrant abdominal pain that radiates to her back. She states she has been having intermittent episodes of abdominal pain however over the last 2 hours she had right lower quadrant abdominal pain that worsened. She reports associated nausea. Denies fever, dysuria, hematuria, or any other symptoms at this time. Initial vital signs are stable however on physical examination patient has right lower quadrant abdominal tenderness with guarding. She does report having a history of ovarian cysts. We will obtain a CT scan to rule out acute appendicitis. I will also obtain an ultrasound to rule out an ovarian torsion. Differential diagnosis: Ovarian torsion, acute appendicitis, viral gastroenteritis, ectopic There are no social concerns with this patient. Prescription drug management Prescriptions will include: Medical management and examination interpretation discussions were had by me with other qualified healthcare professionals as indicated for the patient's care. Patient's laboratory studies are all normal. CT scan shows large stool burden especially in the cecum and free fluid in the pelvis. Appendix was not well visualized. There was no free air. Gallbladder wall possible thickening. Transvaginal ultrasound also showed free fluid no ovarian cysts. Patient has a history of ovarian cysts I wonder if one of them ruptured and that is causing the patient's pain and fluid in her pelvis. ED Course Orders Procedure Category Date Status Time Cbc With Differential LAB 03/13/25 Complete 00:24 Basic Metabolic Panel LAB 03/13/25 Complete 00:24 Urinalysis Profile LAB 03/13/25 Complete 00:24 ,Urine Test LAB 03/13/25 Complete 00:24 Us Pelvic Non-Ob Comp US 03/13/25 Resulted 00:24 Ct Abdomen/Pelvis CT 03/13/25 Resulted W/Contrast 00:24 Iohexol (Omnipaque) PHA 03/13/25 Complete 01:23 Ketorolac PHA 03/13/25 Complete Tromethamine 30mg/Ml 02:00 Current Medications Medications (Trade) Dose Ordered Sig/Jon Route PRN Reason Start Time Stop Time Status Last Admin Dose Admin Iohexol (Omnipaque) 75 ml STK-MED ONCE IV 03/13/25 01:23 03/13/25 01:23 DC Ketorolac Tromethamine (toRADol) 30 mg ONCE ONCE IV 03/13/25 02:00 03/13/25 02:01 DC 03/13/25 01:52 Vital Signs Date Time Temp Pulse Resp B/P (MAP) Pulse Ox O2 Delivery O2 Flow Rate FiO2 03/13/25 02:00 75 15 109/73 100 Room Air* 0 21 03/13/25 00:25 98.1 85 20 121/87 100 Room Air* 0 21 03/13/25 00:15 98.1 82 16 128/91 98 Room Air DX & DISP Disposition: Discharge Departure Impression: Primary Impression: Abdominal pain Additional Impression: Constipation Condition: Stable Additional Instructions: Drink plenty of fluids stay hydrated and if your pain becomes incapacitating to the point that you can not eat or drink fluids please return. Otherwise I think you can follow-up with your bird keeper or your family practice doctor. Referrals: SELF,REFERRAL (PCP) ELSIE ESCOTO March 13, 2025 00:54 FELICIANO MOON MD March 13, 2025 02:12
[2025-03-13 00:55] LABS: CREATININE 0.6 mg/dL (0.5-1.0); POTASSIUM 3.6 mmol/L (3.5-5.1)
[2025-03-13 00:56] LABS: HCG,QUALITATIVE URINE NEGATIVE (NEGATIVE)
[2025-03-13] MEDS ORDERED: IOHEXOL-350 75 ML VIAL IV ONE (01:23)
--- NOTE | 2025-03-13 01:48 | HMCIMG ---
CT ABDOMEN/PELVIS W/CONTRAST HISTORY: Bilateral lower abdominal pain COMPARISON: 04/10/2024 TECHNIQUE: Multiple sequential axial images of the abdomen and pelvis were obtained from the dome of the diaphragm through symphysis pubis. Patient was given 75 cc of through intravenous route. Oral contrast was not given. FINDINGS: No pleural effusion is seen bilaterally. There is no evidence of parenchymal disease or pulmonary nodule of the visualized lower lungs. Degenerative changes of the thoracolumbar spine are present. The heart is not enlarged. Liver measures 16 cm. The liver, spleen, adrenal glands and pancreas are unremarkable. There is no evidence of hydronephrosis bilaterally. No evidence of renal stone is seen. Fecal material is seen in the colon. There are normal size retroperitoneal and mesenteric lymph nodes. Small amount of free fluid is seen in the pelvis. No ascites is seen. Appendix is not well-seen limiting evaluation. No definite ancillary findings of acute appendicitis is seen. Pelvic sidewalls are symmetric bilaterally. Bladder is well distended without wall thickening. IMPRESSION: 1. Fecal material is seen in the colon. Small amount of free fluid is seen in the pelvis. Appendix is not well-seen limiting evaluation. CT was performed with one or more following dose reduction techniques: automated exposure control, adjustment of the mA and kv according to patient's size, or use of a iterative reconstruction technique.
[2025-03-13] MEDS: ketOROlac 30MG VIAL (30MG/ML) IV ONE (01:52)
--- NOTE | 2025-03-13 01:57 | HMCIMG ---
US PELVIC NON-OB COMP HISTORY: Rule out torsion COMPARISON: None TECHNIQUE: Transabdominal pelvic ultrasound study was performed. FINDINGS: The uterus measures 8 x 4 x 4 cm. The right ovary measures 3 x 1 x 2 cm. The left ovary measures 2.1 x 2 cm. Flow is seen in both ovaries. Endometrial thickness is 4 mm. Small amount of free fluid is seen in the cul-de-sac. IMPRESSION: 1. No adnexal mass is seen. Flow is seen in both ovaries.
[2025-03-13 02:28] VITALS: BP 113/80; PULSE 70; RESP 17; TEMP 98; O2SAT 100
== END 2025-03-13 02:29 | disposition home or self-care (01) ==
LOC: EDH 00:14
DX: K59.00 Constipation, unspecified (principal); R10.31 Right lower quadrant pain
CPT/HCPCS: 99285; 74177; 96374; 76856; 80048; 85025; 81003; 81025; 36415; J1885; Q9967

== ENCOUNTER 2025-07-02 14:39 | Emergency (ER) | payer BC ==
[~2025-07-02] VITALS: Ht 160 cm; Wt 52.6 kg
[2025-07-02] MEDS: HYDROcodone/APAP 5/325 1 TAB TABLET PO ONE (15:20)
--- NOTE | 2025-07-02 16:28 | ERN ---
ED Note History of Present Illness Stated Complaint: LEFT 5TH TOE FX Chief Complaint: Toe Pain/Injury Time Seen by MD: 14:41 Time Seen by Midlevel: 14:41 Dictation: The patient is a 24-year-old female with no significant past medical history who presents to the emergency department with complaints of left 5th digit injury after she accidentally tripped while going down the stairs onset 10:30 a.m.. Patient denies any falls but reports her pinky got stuck in one of the stairs. Patient denies any other injuries. Allergies: Coded Allergies: No Known Drug Allergies (Unverified Allergy, Unknown, 12/06/19) Home Meds Active Scripts Docusate Sodium (Colace) 100 Mg Capsule, 100 MG PO BID for 14 Days, #28 CAP 0 Refills Prov:TRAVON BOYLE NP 04/10/24 Polyethylene Glycol 3350 (Miralax) 17 Gram Powd.pack, 17 GM PO DAILY, #30 30 0 Refills Prov:TRAVON BOYLE NP 04/10/24 Ondansetron (Ondansetron Odt) 4 Mg Tab.rapdis, 4 MG PO Q6HPRN PRN for nausea, #15 TAB 0 Refills Prov:TRAVON BOYLE NP 04/10/24 Famotidine (Pepcid) 20 Mg Tablet, 20 MG PO BID, #60 TAB Prov:OSMIN HICKMAN MD 03/26/23 Ondansetron HCl (Ondansetron HCl) 4 Mg Tablet, 4 MG PO TIDP PRN for VOMITING, #30 TAB Prov:OSMIN HICKMAN MD 03/26/23 Ondansetron (Ondansetron Odt) 4 Mg Tab.rapdis, 4 MG PO Q6HPRN PRN for nausea, #16 TAB 0 Refills Prov:TIARRA PRIETO MD 07/17/22 Loperamide HCl (Loperamide) 2 Mg Capsule, 2 MG PO 5XDAY for diarrhea, #10 CAP 0 Refills Take 2 tablets initially and then 1 tablet with every loose bowel movement. Prov:TIARRA PRIETO MD 07/17/22 Esomeprazole Magnesium (Nexium) 40 Mg Capsule.dr, 40 MG PO DAILY for 15 Days, #15 CAP 0 Refills Prov:TIARRA PRIETO MD 9/7/22 Past Medical History Past Medical History: TB, Other Additional Past Medical Hx: VITILIGO; GASTRITIS Surgical History: None Family History: Negative Social History: Negative, Lives with family RN Note Reviewed/Agreed w/PFSH: Yes Review of System Dictation Constitutional: Negative for fever,chills, and weight loss Eyes: Negative for injury, pain,redness, and discharge ENT: Negative for injury,pain or swelling Cardiovascular: Negative for chest pain, palpitations, and edema Respiratory: Negative for shortness of breath, cough, and wheezing, Abdomen/GI: Negative for abdominal pain, nausea, vomiting, diarrhea, and consti pation Back: Negative for injury and pain : Negative for injury, bleeding and discharge MS/Extremity: Positive for left toe pain Skin: Negative for rash, and discoloration Neuro: Negative for headache, weakness, numbness, tingling, and seizure Psych: Negative for suicide ideation, homicidal ideation, and hallucinations Initial Vital Sign VS Vital Signs Date Time Temp Pulse Resp B/P (MAP) Pulse Ox O2 Delivery O2 Flow Rate FiO2 07/02/25 14:40 98.1 96 18 116/84 98 Room Air 07/02/25 15:21 0 21 Physical Exam Dictation Vital Signs reviewed General Appearance: Alert, oriented x 3, no acute distress, well developed, nourished. Head and Face: non-traumatic. Eyes: PERRL, pink conjunctivas, eyelid no trauma, anterior chamber with arcus senilis. Ears: Pinnas intact and no signs of trauma or erythema ear canals clear and no discharge TM no erythema Nose: No discharge, no bleeding. Oropharynx: Mouth normal, tongue pink. pharynx clear,no erythema, tonsils no exudates, no abscesses noted, mucous membrane moist Neck: Supple, non-tender, no thyromegaly, no masses, no JVD, no bruits Breast:Deferred Chest:No tenderness, no crepitus, no paradoxical movement, no retractions Lungs:Clear, well-ventilated, symmetric, no rales, no wheezing, no rhonchi, no stridor, good breath sounds bilaterally Heart: Regular rate, regular rhythm, no murmur, no gallops Vascular: no peripheral edema, Abdomen: Soft, positive bowel sounds, nondistended, no guarding, nontender, no rebound, no masses no hepatomegaly, no splenomegaly, no Lombardi's sign, no hernias. Rectal: Deferred Genital: Deferred Neurological: Normal speech, motor function intact, sensory function intact Musculoskeletal: Neck nontender, full range of motion, back nontender, full range of motion, Extremities: nontender, full range of motion , left 5th toe with mild deformity, no open wounds , cap refill less than 2 seconds Skin: Color pink, dry, no turgor, no rash, no lacerations, no abrasions, no contusions. Lymphatic: Deferred Results (Laboratory/Radiology) Laboratory/Radiology REASON: 5th toe injury ORDERING PHYSICIAN: DESMOND JACOME CELL TOWER CLIMBER PROCEDURE: TOES LT - TOE(S) 2+VWS LT ADDENDUM REPORT ADDENDUM: EXAM: CR Toes, left, 2 View. CLINICAL HISTORY: 5th toe injury COMPARISON: None provided. FINDINGS: Mildly displaced, extra-articular fracture of the proximal diaphysis of the fifth proximal phalanx. Joint spaces remain anatomically aligned. Fifth toe soft tissue edema. IMPRESSION: 1. Mildly displaced fracture of the right fifth toe proximal phalanx with surrounding soft tissue edema. /[place] EXAM: CR Toes, right, 2 View. CLINICAL HISTORY: 5th toe injury COMPARISON: None provided. FINDINGS: Mildly displaced, extra-articular fracture of the proximal diaphysis of the fifth proximal phalanx. Joint spaces remain anatomically aligned. Fifth toe soft tissue edema. IMPRESSION: 1. Mildly displaced fracture of the right fifth toe proximal phalanx with surrounding soft tissue edema. /[place] Labs Reviewed?: Yes ED Course ED Course Orders Procedure Category Date Status Time Toe(S) 2+Vws Lt RAD 07/02/25 Resulted 15:08 Hydrocodone/Apap PHA 07/02/25 Complete 5/325 ([place] 5/325mg) 15:30 Brittney Splint EDITH 07/02/25 Complete 15:50 Ortho Shoe EDITH 07/02/25 Complete 15:50 Current Medications Medications (Trade) Dose Ordered Sig/Jon Route PRN Reason Start Time Stop Time Status Last Admin Dose Admin Acetaminophen/ Hydrocodone Bitart (NORco 5/325MG) 1 tab ONCE ONCE PO 07/02/25 15:30 07/02/25 15:31 DC 07/02/25 15:20 Vital Signs Date Time Temp Pulse Resp B/P (MAP) Pulse Ox O2 Delivery O2 Flow Rate FiO2 07/02/25 17:10 98.1 92 18 117/84 97 Room Air* 0 21 07/02/25 15:21 98.1 79 16 102/74 97 Room Air* 0 21 07/02/25 14:40 98.1 96 18 116/84 98 Room Air Medical Decision Making MDM The patient is a 24-year-old female with no significant past medical history who presents to the emergency department with complaints of left 5th digit injury after she accidentally tripped while going down the stairs onset 10:30 a.m.. Patient denies any falls but reports her pinky got stuck in one of the stairs. Patient denies any other injuries. X-ray showed fracture to the 5th st proximal phalangeal. Patient with no open wounds. We will brittney tape and discharge patient to follow up with the ortho on physical exam patient is in no acute distress, nontoxic appearance. Neurovascularly intact Differential diagnosis: Toe contusion, toe fracture, toe dislocation Need for hospitalization: Patient does not meet criteria for hospitalization. There are no social concerns with this patient. DX & DISP Disposition: Discharge Departure Impression: Primary Impression: Fracture of toe of left foot Condition: Stable Additional Instructions: X-ray did show you have a toe fracture. Please follow up with ortho as soon as possible. Follow up with the primary doctor in 1-2 days. FOLLOW-UP WITH PRIMARY CARE PROVIDER IN 1 TO 2 DAYS. TAKE MEDICATIONS DIRECTED HERE IN THE EMERGENCY ROOM. OKAY TO CONTINUE HOME MEDICATIONS UNLESS OTHERWISE DISCUSSED DURING YOUR VISIT IN THE EMERGENCY ROOM TODAY. RETURN TO YOUR NEAREST EMERGENCY ROOM IF SYMPTOMS WORSEN OR IF THERE IS NO IMPROVEMENT. CALL 911 IF YOU NEED IMMEDIATE ASSISTANCE. TAKE TYLENOL [id number] NEEDED AND IF NO CONTRAINDICATIONS ARE PRESENT. INCREASE ORAL HYDRATION. A WOUND CULTURE OR URINE CULTURE WAS ORDERED HERE IN THE EMERGENCY ROOM DEPARTMENT PLEASE FOLLOW-UP WITH PRIMARY CARE PROVIDER AND ADVISE THEM TO GET REPEAT PORTS FROM OUR FACILITY. IF YOU HAD ANY MEGHAN WRAP/SPLINTS THAT WERE APPLIED HERE, PLEASE DO NOT REMOVE THEM UNTIL YOU SEE YOUR PRIMARY CARE OR SPECIALTY. Referrals: DELISA LE (PCP) LYLE SAMANIEGO MD Time of Disposition: 16:33 I have reviewed the case, and I agree with, Diagnosis and Plan DESMOND JACOME Jul 02, 2025 16:28 CASI FRIED DO Jul 02, 2025 18:23
--- NOTE | 2025-07-02 16:53 | HMCIMG ---
EXAM: CR Toes, right, 2 View. CLINICAL HISTORY: 5th toe injury COMPARISON: None provided. FINDINGS: Mildly displaced, extra-articular fracture of the proximal diaphysis of the fifth proximal phalanx. Joint spaces remain anatomically aligned. Fifth toe soft tissue edema. IMPRESSION: 1. Mildly displaced fracture of the right fifth toe proximal phalanx with surrounding soft tissue edema. /[place]
[2025-07-02 17:10] VITALS: BP 117/84; PULSE 92; RESP 18; TEMP 98; O2SAT 97
--- NOTE | 2025-07-02 17:10 | NUR ---
DC PATIENT WAS DC'D BY DESMOND JACOME ASSISTANT PROGRAM DIRECTOR I EXPLAINED TO PATIENT TO FOLLOW UP WITH PCP, PROVIDED INFO BASED ON DIAGNOSIS AND ANSWERED ANY FOLLOW UP QUESTIONS PATIENT WAS WHEELCHAIRED OUT OF ED, NO COMPLICATIONS
== END 2025-07-02 17:07 | disposition home or self-care (01) ==
LOC: EDH 14:39
DX: S92.512A Displaced fracture of proximal phalanx of left lesser toe(s), initial encounter for closed fracture (principal); Z79.899 Other long term (current) drug therapy; W01.0XXA Fall on same level from slipping, tripping and stumbling without subsequent striking against object, initial encounter; Y93.89 Activity, other specified; Y92.89 Other specified places as the place of occurrence of the external cause; Y99.8 Other external cause status
CPT/HCPCS: 73660; 99283

== ENCOUNTER 2025-11-06 22:04 | Emergency (ER) | payer BC, OTHER ==
[~2025-11-06] VITALS: Ht 162.6 cm; Wt 54.4 kg
--- NOTE | 2025-11-06 22:07 | NUR ---
ICE PACK WITH BARRIER PROVIDED IN TRIAGE
--- NOTE | 2025-11-06 22:32 | NUR ---
ICE PACK PROVIDED TO PT AT THIS TIME.
--- NOTE | 2025-11-06 22:35 | ERN ---
General Chief Complaint: Wrist Pain/Injury Stated Complaint: RT WRIST PAIN Time Seen by MD: 22:06 History of Present Illness Initial Comments Otherwise healthy 25-year-old presents for right hand injury. Patient was holding onto something misstepped in her hand and pulled. She complains and compared to her metatarsals with the for comfort digits. She has full range of motion, neurovascularly intact. No major swelling or injury. No other injuries or complaints. Allergies: Coded Allergies: No Known Drug Allergies (Unverified Allergy, Unknown, 12/06/19) Home Meds Active Scripts Docusate Sodium (Colace) 100 Mg Capsule, 100 MG PO BID for 14 Days, #28 CAP 0 Refills Prov:TRAVON BOYLE [facility] 04/10/24 Polyethylene Glycol 3350 (Miralax) 17 Gram Powd.pack, 17 GM PO DAILY, #30 30 0 Refills Prov:MONTANATRAVON Nguyen [facility] 04/10/24 Ondansetron (Ondansetron Odt) 4 Mg Tab.rapdis, 4 MG PO Q6HPRN PRN for nausea, #15 TAB 0 Refills Prov:MONTANATRAVON Nguyen [facility] 04/10/24 Famotidine (Pepcid) 20 Mg Tablet, 20 MG PO BID, #60 TAB Prov:OSMIN HICKMAN MD 03/26/23 Ondansetron HCl (Ondansetron HCl) 4 Mg Tablet, 4 MG PO TIDP PRN for VOMITING, #30 TAB Prov:OSMIN HICKMAN MD 03/26/23 Ondansetron (Ondansetron Odt) 4 Mg Tab.rapdis, 4 MG PO Q6HPRN PRN for nausea, #16 TAB 0 Refills Prov:TIARRA PRIETO MD 07/17/22 Loperamide HCl (Loperamide) 2 Mg Capsule, 2 MG PO 5XDAY for diarrhea, #10 CAP 0 Refills Take 2 tablets initially and then 1 tablet with every loose bowel movement. Prov:TIARRA PRIETO MD 07/17/22 Esomeprazole Magnesium (Nexium) 40 Mg Capsule.dr, 40 MG PO DAILY for 15 Days, #15 CAP 0 Refills Prov:TIARRA PRIETO MD 07/17/22 Past Medical History Past Medical History: TB, Other Medical History Other: VITILIGO; GASTRITIS Past Surgical History: None Family History Family History: Negative Social History Social History: Negative, Lives with family Female( History) LMP: Oct 10, 2025 ROS Dictation CONSTITUTIONAL: No chills, no fever, no weakness, no diaphoresis, no malaise. HEAD/FACE: No signs of trauma. EENT: No eye pain, no blurred vision, no tearing, no double vision, no ear pain, no ear discharge, no nose pain, no nasal congestion, no throat pain, no throat swelling, no mouth pain. RESPIRATORY: No cough, no orthopnea, no SOB, no stridor, no wheezing. CARDIOVASCULAR: No chest pain, no edema, no palpitations, no syncope. GASTROINTESTINAL/ABDOMINAL: No abdominal pain, no constipation, no diarrhea, no nausea, no vomiting. GENITOURINARY: No abnormal discharge, no dysuria, no frequent urination, no hematuria. No complaints of pain in the genitals. MUSCULOSKELETAL: Right hand pain NEUROLOGICAL/PSYCH: No anxiety, not depressed, no emotional problem, no headache, no numbness, no pre-existing deficit, no history of seizures, no tremors, no weakness. HEMATOLOGIC/LYMPHATIC: Not anemic, no history of blood clots, no apparent bleeding, no bruising, glands not swollen. All Systems Negative, Except as Noted. Physical Exam Physical Exam Dictation VITAL SIGNS: Reviewed. GENERAL APPEARANCE: Alert, oriented x3, no acute distress, obese. HEAD AND FACE: Non-traumatic. EYES: PERRL, pink conjunctivas, eyelid no trauma, anterior chamber clear. EARS: Pinnas intact and no signs of trauma or erythema. Ear canals clear and no discharge. TMs no erythema. NOSE: No discharge, no bleeding. OROPHARYNX: Mouth normal, teeth no caries, tongue pink. Pharynx clear, no erythema. Tonsils no exudates, no abscesses noted. Mucous membrane moist. NECK: Supple, non-tender, no thyromegaly, no masses, no JVD, no bruits. BREAST: Deferred. CHEST: No tenderness, no crepitus, no paradoxical movement, no retractions. LUNGS: Clear, well-ventilated, symmetric, no rales, no wheezing, no rhonchi, no stridor, good breath sounds bilaterally. HEART: Regular rate, regular rhythm, no murmur, no gallops. VASCULAR: No peripheral edema. ABDOMEN: Soft, positive bowel sounds, nondistended, no guarding, nontender, no rebound, no masses no hepatomegaly, no splenomegaly, no Lombardi's sign, no hernias. RECTAL: Deferred. GENITAL: Deferred. NEUROLOGICAL: Normal speech, gross motor function intact, gross sensory function intact. MUSCULOSKELETAL: Neck nontender, full range of motion, back nontender, full range of motion. EXTREMITIES: Nontender, full range of motion. SKIN: Color pink, dry, no turgor, no rash, no lacerations, no abrasions, no contusions. LYMPHATICS: Deferred. MDM CC: Pain to the right hand below the 4th or 5th digits Historian: Patient No comorbidities No limitations Differential diagnosis: Fracture versus soft tissue injury Clinically patient was neurovascularly intact. No signs of compartment syndrome, open injury, major fracture. Vital signs are stable X-ray per my independent interpretation shows no acute bony abnormalities Likely a sprain/strain. Given ice, Tylenol or in the ER. Placed in a splint. We will DC with sprain, conservative management recommend PCP follow up. ED Course Orders Procedure Category Date Status Time Wrist Comp 3+Vws Rt RAD 11/06/25 Taken 22:06 Acetaminophen 500mg PHA 11/06/25 Complete Tab (Tylenol 500mg T 22:30 *Nursing CPOE 11/06/25 Transmitted Communication: 22:09 Current Medications Medications (Trade) Dose Ordered Sig/Jon Route PRN Reason Start Time Stop Time Status Last Admin Dose Admin Acetaminophen (TYLenol 500MG TAB) 1,000 mg ONCE ONCE PO 11/06/25 22:30 11/06/25 22:31 DC Vital Signs Date Time Temp Pulse Resp B/P (MAP) Pulse Ox O2 Delivery O2 Flow Rate FiO2 11/06/25 22:05 98.1 84 18 122/76 99 Room Air DX & DISP Disposition: Discharge Departure Impression: Primary Impression: Sprain of hand, right Condition: Stable Additional Instructions: Your symptoms are most consistent with a hands sprain/strain. This is a soft tissue injury. Or these type of injuries usually heal on their own. The x-rays are unremarkable. Wear the splint they have been provided until the pain improves. You can remove the splint to wash her hands. Apply ice for at least 20 minutes 3 times per day for the next three days. Alternate Tylenol (1000 mg) and ibuprofen (600 mg) every4 hours as needed for pain and swelling. (do not take ibuprofen if you are or if there was any chance that you are ). If you continue with symptoms for longer than three days, I recommend that you follow up with your primary doctor for re-evaluation. Return to the emergency department as needed. Referrals: DELISA LE (PCP) CASI FRIED DO Nov 06, 2025 22:35
[2025-11-06 22:37] VITALS: BP 113/64; PULSE 80; RESP 17; TEMP 98.1; O2SAT 98
--- NOTE | 2025-11-06 22:52 | NUR ---
PT PLACED IN WRSIT SPLINT ORDERED BY ED MD FRIED. PT TOLERATED PLACEMENT WELL.
--- NOTE | 2025-11-06 23:25 | HMCIMG ---
EXAM: CR right Wrist, 3 View. CLINICAL HISTORY: pain COMPARISON: None provided. FINDINGS: No acute fracture. There is negative ulnar variance, with the distal ulna lying by 5.6 mm below the level of the articular surface of the radius. Mild scalloping is noted in the styloid notch of the radius, suggesting ulnar impingement syndrome. There is a minimal increased gap at the scapholunate articulation, suggesting possible scapholunate dissociation. Subtle dorsal angulation of the distal end of the ulna could be either from triangular fibrocartilage complex tears or overpronation. IMPRESSION: No acute fracture. Negative ulnar variance with radiographic signs of ulnar impingement syndrome. Suspected scapholunate dissociation. Subtle dorsal angulation of the distal end of the ulna could be either from triangular fibrocartilage complex tears or overpronation. MRI of the right wrist is recommended to confirm the findings and rule out triangular fibrocartilage complex tears and ligamentous injuries. /[place]
== END 2025-11-06 22:55 | disposition home or self-care (01) ==
LOC: EDH 22:04
DX: S63.91XA Sprain of unspecified part of right wrist and hand, initial encounter (principal); Z87.19 Personal history of other diseases of the digestive system; W22.8XXA Striking against or struck by other objects, initial encounter; Y93.89 Activity, other specified; Y92.89 Other specified places as the place of occurrence of the external cause; Y99.8 Other external cause status
CPT/HCPCS: 29125; 73110; 99283